=== PATIENT | female | born 1960 | race Caucasian/White ===

== ENCOUNTER → 2016-11-04 | Outpatient (CLI) | payer BC ==
--- NOTE | 2016-11-07 14:38 | MY ---
EXAMINATION: Bilateral digital mammography utilizing CAD. HISTORY: Screening exam. Comparison is made to previous studies dated 11/11/2015, 11/06/2014, 014. FINDINGS: Bilateral scattered fibroglandular densities. No suspicious calcifications, masses or a rchitectural distortions. No pathologic appearing lymph nodes, no abnormal skin thickening or nipp le inversion. CAD highlighted regions appear normal at this time. IMPRESSION: BI-RADS category I - negative mammogram. Continued screening according to ACR-ACS gu idelines suggested. THE FALSE-NEGATIVE RATE OF MAMMOGRAM IS APPROXIMATELY 10%. MANAGEMENT OF A PALPABLE ABNORMALITY MUST BE BASED UPON CLINICAL GROUNDS. SENSITIVITY FOR DETECTION OF ABNORMALITIES IN DENSE BREASTS IS LOW. NOTE: A letter will be sent to the patient regarding findings. [facility] -- BAMBI Baer [phone] - FAX [phone]
== END ==
LOC: MW.MAM 11:20
PROVIDERS: ATTEND Obstetrics & Gynecology
DX: Z12.31 Encounter for screening mammogram for malignant neoplasm of breast (principal)
CPT/HCPCS: G0202; G0202-26

== ENCOUNTER → 2016-11-21 | Outpatient (CLI) | payer BC ==
--- NOTE | 2016-11-22 14:14 | MR ---
EXAM DATE: 11/21/16 PATIENT'S AGE: 56 Patient: VALERY SOUTH Facility: [place], [place] Site . Site : [id number] Study: MRI Spine Lumbar [id number]/3/2017 7:38:44 PM Ordering Physician: Chuck Mullins Final Report: Indication: Low back pain. History degenerative disc disease. Technique: Noncontrast sagittal axial T1 and T2 and sagittal stir sequences are provided. No comparisons. Findings: Degenerative signal changes present adjacent L4-L5 and S1 endplates. Hemangioma within the T12 vertebral body. Mild lumbar scoliosis. Remainder of the lumbar spine demonstrates normal overall stature, alignment and intact and marrow signal. Conus is within normal limits. T12-L1, L1-2: Unremarkable. L2-3: Minimal circumferential disk bulge results in no central canal or foraminal narrowing. L3-4: Mild underlying disc bulge results in no central canal or foraminal narrowing. L4-5: Mild underlying disk bulge that is eccentric to the right with moderate facet arthropathy results in no left foraminal narrowing with moderate central canal narrowing and right foraminal narrowing with compression of the exiting right L4 nerve root. L5-S1: Mild broad-based posterior disc bulge with moderate facet arthropathy that appears slightly eccentric to the left results in moderate lateral recess narrowing with compression of the traversing S1 nerve roots. Moderate bilateral foraminal narrowing slightly worse on the left. Mild to moderate central canal narrowing. Impression: 1. Moderate bilateral recess and foraminal narrowing at L5-S1. 2. Moderate central canal and right foraminal narrowing at L4-5. 3. Lumbar scoliosis. 4. Milder degenerative change within the remainder of the lumbar spine as outlined above. Dictated by Roel Shoemaker MD @ Nov 22 2016 12:27PM (Electronic Signature) Report Signed by Proxy and Original Signed Document filed in the Medical Record. [email or web address]
== END ==
LOC: MW.MRI 17:44
PROVIDERS: ATTEND Emergency Medicine
DX: M51.36 Other intervertebral disc degeneration, lumbar region (principal); M47.817 Spondylosis without myelopathy or radiculopathy, lumbosacral region; M41.9 Scoliosis, unspecified; M99.73 Connective tissue and disc stenosis of intervertebral foramina of lumbar region; M99.74 Connective tissue and disc stenosis of intervertebral foramina of sacral region
CPT/HCPCS: 72148; 72148-26

== ENCOUNTER 2016-12-22 12:04 | Day surgery (SDC) | payer BC ==
[~2016-12-22 12:04] MED LIST: Betamethasone Acetate/Betamethasone Sod Phosphate 30 MG/5 ML MDV ONE; Iopamidol 408 MG/ML 200 ML SDV IV ONE; Lidocaine 2% 5 ML SDV ONE; Ropivacaine 0.5% 5 MG/ML 30 ML SDV ONE
--- NOTE | 2016-12-22 21:35 | OR ---
SURGEON: Sindhu Oviedo D.O. DATE OF PROCEDURE: 12/22/2016 OR STAFF PRESENT: 1. Carmen Greene RN. 2. Ezequiel Haley RN. 3. RT Misa. WOUND CLASSIFICATION: 1. PREOPERATIVE DIAGNOSES: 1. Chronic low back pain. 2. Lumbar degenerative disk disease. 3. Lumbar spondylosis. 4. Lumbar spinal stenosis. POSTOPERATIVE DIAGNOSES: 1. Chronic low back pain. 2. Lumbar degenerative disk disease. 3. Lumbar spondylosis. 4. Lumbar spinal stenosis. PROCEDURE PERFORMED: 1. Caudal epidural steroid injection. 2. Fluoroscopic guidance for needle placement. 3. Local with oral Valium for sedation. SCREENING QUESTIONS: The patient answered "no" to all of the following questions: 1. Are you allergic to latex? 2. Do you have a bleeding disorder? 3. Do you have any current local or systemic infections? 4. Are you taking any anti-inflammatories or blood thinners? 5. Do you have any joint replacements, heart valve replacements, or a pacemaker? DESCRIPTION OF PROCEDURE: The patient had the procedure thoroughly explained including all possible risks, benefits and alternatives. Consent was signed in my clinic indicating understanding and willingness to proceed. The patient presented to [facility] and was escorted to the dressing room to disrobe and change into a hospital gown. Preoperative vital signs were taken and stable. The patient reported that Valium was taken prior to the procedure. The patient was brought back to the procedure room and placed in the prone position on the procedure room table. A pillow was placed under the hips in order to flatten the lumbar lordosis. The back was prepped with ChloraPrep and sterilely draped. All personnel in the operating room were dressed in appropriate attire including surgical scrubs, head and shoe covers. This was to ensure sterility while in the treatment room. During the time fluoroscopy was in use, all personnel in the operating room wore lead west with thyroid collars. Sterile technique was used throughout the procedure. The patient was awake and conversant throughout the procedure. There was no evidence of infection at the site of needle insertion. Skeletal landmarks were identified under fluoroscopy for the caudal epidural. Skin was anesthetized with 2% lidocaine with a sterile 27-gauge 1.5 inch needle. Then a 20-gauge Tuohy epidural needle was placed in the epidural space with loss of resistance technique under fluoroscopic guidance. No heme, cerebrospinal fluid, or paresthesias were noted. Isovue-200 contrast dye was injected in 0.2 cubic centimeter increments and seen to outline the epidural space in both AP and lateral views. There was no intravascular flow pattern observed under live fluoroscopy. Then 12 milligrams of Celestone was slowly injected after negative aspiration. The patient tolerated the procedure well. Vital signs were stable during and after the procedure. The staff escorted the patient to the recovery area and the patient was released in stable condition after a brief stay in the recovery room monitored by the nurse. The patient was given both oral and written discharge and follow up instructions with recommendation to follow up given for 2-3 weeks. The patient voiced understanding including understanding of those signs and symptoms that would require emergency care. The patient knows how to contact the office if there are any additional problems or questions in the meantime. PREOPERATIVE PAIN: 8/10. POSTOPERATIVE PAIN: 1/10. FOLLOWUP: Follow up in the pain clinic in 2 to 3 weeks. WILNER / DANNIELLE /[id number] SANJAY
== END 2016-12-22 13:45 | disposition home or self-care (01) ==
LOC: MW.SDS 12:04
PROVIDERS: ATTEND Anesthesiology
DX: M51.16 Intervertebral disc disorders with radiculopathy, lumbar region (principal); M48.06 Spinal stenosis, lumbar region; M47.896 Other spondylosis, lumbar region; M99.83 Other biomechanical lesions of lumbar region; F40.240 Claustrophobia; E78.00 Pure hypercholesterolemia, unspecified; M17.12 Unilateral primary osteoarthritis, left knee; G25.81 Restless legs syndrome; F17.290 Nicotine dependence, other tobacco product, uncomplicated; Z98.890 Other specified postprocedural states; Z79.82 Long term (current) use of aspirin; Z79.899 Other long term (current) drug therapy; Z90.710 Acquired absence of both cervix and uterus
CPT/HCPCS: 62323; J0702; J2795; Q9966

== ENCOUNTER 2017-06-17 09:34 | Emergency (ER) | payer BC ==
--- NOTE | 2017-06-17 09:57 | EDM.PDOC ---
ED HPI GENERAL MEDICAL PROBLEM - General Chief Complaint: Fever Stated Complaint: BODY ACHES Time Seen by Provider: 06/17/17 09:52 - History of Present Illness INITIAL COMMENTS - FREE TEXT/NARRATIVE: HISTORY AND PHYSICAL: History of present illness: Patient is 56-year-old white female with no significant past medical history is 2 weeks status post spinal fusion who comes in with fever and body aches her temperature was 100.5 and she's had some general body aches she denies cough nausea vomiting abdominal pain she denies back pain states her postop course has been wonderful Review of systems: As per history of present illness and below otherwise all systems reviewed and negative. Past medical history: As per history of present illness and as reviewed below otherwise noncontributory. Surgical history: As per history of present illness and as reviewed below otherwise noncontributory. Social history: No reported history of drug or alcohol abuse. Family history: As per history of present illness and as reviewed below otherwise noncontributory. Physical exam: HEENT: Atraumatic, normocephalic, pupils reactive, negative for conjunctival pallor or scleral icterus, mucous membranes moist, throat clear, neck supple, nontender, trachea midline. Lungs: Clear to auscultation, breath sounds equal bilaterally, chest nontender. Heart: S1S2, regular, negative for clicks, rubs, or JVD. Abdomen: Soft, nondistended, nontender. Negative for masses or hepatosplenomegaly. Negative for costovertebral tenderness. Pelvis: Stable nontender. Genitourinary: Deferred. Rectal: Deferred. Extremities: Atraumatic, negative for cords or calf pain. Neurovascular unremarkable. Neuro: Awake, alert, oriented. Cranial nerves II through XII unremarkable. Cerebellum unremarkable. Motor and sensory unremarkable throughout. Exam nonfocal. Back: Patient's wound is healing nicely was no tenderness no erythema and no discharge patient able stand on her toes back on her heels Diagnostics: CBC CMP UA chest x-ray influenza screen Therapeutics: To be determined Impression: #1 observation 2 weeks status post lumbar surgery #2 fever #3 myalgia Definitive disposition and diagnosis as appropriate pending reevaluation and review of above. - Related Data Allergies Allergy/AdvReac Type Severity Reaction Status Date / Time No Known Allergies Allergy Verified 06/17/17 09:45 Home Meds: Home Meds Ascorbic Acid [Vitamin C] 500 mg PO DAILY 12/24/13 [History] Aspirin [Kami Chewable Aspirin] 81 mg PO DAILY 12/24/13 [History] Multivitamin [Multivitamins] 1 cap PO DAILY 12/24/13 [History] Vitamin B Complex 1 cap PO DAILY 12/24/13 [History] FLUoxetine [PROzac] 1 mg PO DAILY 06/01/15 [History] valACYclovir [Valtrex] 1 tab PO DAILY PRN 06/03/15 [History] Acetaminophen/HYDROcodone [[place] 325-10 MG] 1 - 2 mg PO Q4H PRN 06/17/17 [ History] Nitrofurantoin 100 mg PO DAILY 06/17/17 [History] Past Medical History Other Cardiovascular History: History of racing heart and Ablation of heart done 12 yrs ago Other Respiratory History: 30 yr history of smoking Other Musculoskeletal History: Low back pain, hx: fracturing 2 bones to foot, current Shoulder in 02/2015 Other Oncologic History: Cancer excise 24 yrs ago Other Dermatologic History: hx: skin cancer 24 yrs ago, no return thus far - Past Surgical History Other Cardiovascular Surgeries/Procedures: Heart ablation 12 yrs ago Other Female Surgeries/Procedures: Bladder Repair Other Musculoskeletal Surgeries/Procedures:: Left and Right Knee surgeries Social & Family History - Tobacco Use Smoking Status *Q: Current Every Day Smoker Years of Tobacco use: 30 Packs/Tins Daily: 0.5 - Alcohol Use Days Per Week of Alcohol Use: 2 Number of Drinks Per Day: 6 Total Drinks Per Week: 12 - Recreational Drug Use Recreational Drug Use: No Drug Use in Last 12 Months: No ED ROS GENERAL - Review of Systems Review Of Systems: ROS reveals no pertinent complaints other than HPI. ED EXAM, GENERAL - Physical Exam Exam: See Below (See dictation) Course - Vital Signs Last Recorded V/S: Last Vital Signs Temp 36.7 C 06/17/17 11:30 Pulse 92 06/17/17 11:30 Resp 16 06/17/17 11:30 BP 110/51 L 06/17/17 11:30 Pulse Ox 93 L 06/17/17 11:30 - Orders/Labs/Meds Orders: Active Orders 24 hr Category Date Time Status Chest 2V [CR] Stat Exams 06/17/17 09:59 Taken Labs: Laboratory Tests 06/17/17 06/17/17 06/17/17 Range/Units 10:07 10:07 10:17 WBC 11.10 H (4.0-11.0) K/uL RBC 3.34 L (4.30-5.90) M/uL Hgb 9.3 L (12.0-16.0) g/dL Hct 29.4 L (36.0-46.0) % MCV 88.0 (80.0-98.0) fL MCH 27.8 (27.0-32.0) pg MCHC 31.6 (31.0-37.0) g/dL RDW Std Deviation 43.4 (28.0-62.0) fl RDW Coeff of [place]neha 14 (11.0-15.0) % Plt Count 321 (150-400) K/uL MPV 8.40 (7.40-12.00) fL Neut % (Auto) 88.8 H (48.0-80.0) % Lymph % (Auto) 4.1 L (16.0-40.0) % [place] % (Auto) 3.8 (0.0-15.0) % Eos % (Auto) 3.2 (0.0-7.0) % Baso % (Auto) 0.1 (0.0-1.5) % Neut # (Auto) 9.9 H (1.4-5.7) K/uL Lymph # (Auto) 0.5 L (0.6-2.4) K/uL [place] # (Auto) 0.4 (0.0-0.8) K/uL Eos # (Auto) 0.4 (0.0-0.7) K/uL Baso # (Auto) 0.0 (0.0-0.1) K/uL Nucleated RBC % 0.0 /100WBC Nucleated RBCs # 0 K/uL Sodium 137 (136-146) mmol/L Potassium 3.6 (3.5-5.1) mmol/L Chloride 106 (98-110) mmol/L Carbon Dioxide 20 L (21-31) mmol/L BUN 11 (6.0-23.0) mg/dL Creatinine 0.7 (0.6-1.5) mg/dL Est Cr Clr Drug Dosing 69.33 mL/min Estimated GFR (MDRD) > 60.0 ml/min Glucose 147 H (60-110) mg/dL Calcium 9.2 (8.8-10.8) mg/dL Total Bilirubin 0.5 (0.1-1.5) mg/dL AST 11 (5-40) IU/L ALT 14 (8-54) IU/L Alkaline Phosphatase 80 (40-150) Total Protein 6.8 (6.0-8.0) g/dL Albumin 3.9 (3.5-5.0) g/dL Globulin 2.9 (2.0-3.5) g/dL Albumin/Globulin Ratio 1.3 (1.3-2.8) Urine Color YELLOW Urine Appearance SLT CLOUDY Urine pH 6.5 (5.0-8.0) Ur Specific [place] 1.020 (1.001-1.035) Urine Protein NEGATIVE (NEGATIVE) mg/dL Urine Glucose (UA) NEGATIVE (NEGATIVE) mg/dL Urine Ketones TRACE H (NEGATIVE) mg/dL Urine Occult Blood MODERATE (NEGATIVE) Urine Nitrite NEGATIVE (NEGATIVE) Urine Bilirubin NEGATIVE (NEGATIVE) Urine Urobilinogen 0.2 (<2.0) EU/dL Ur Leukocyte Esterase NEGATIVE (NEGATIVE) Urine RBC 2-4 (0-2/HPF) Urine WBC 1-3 (0-5/HPF) Ur Epithelial Cells MODERATE (NONE-FEW) Urine Bacteria FEW (NEGATIVE) Urine Mucus LIGHT (NONE-MOD) Departure - Departure Time of Disposition: 11:37 Disposition: Home, Self-Care 01 Condition: Good Clinical Impression: Pneumonia - Discharge Information Referrals: PCP,Unknown [Primary Care Provider] - Forms: ED Department Discharge Additional Instructions: The following information is given to patients seen in the emergency department who are being discharged to home. This information is to outline your options for follow-up care. We provide all patients seen in our emergency department with a follow-up referral. The need for follow-up, as well as the timing and circumstances, are variable depending upon the specifics of your emergency department visit. If you don't have a primary care physician on staff, we will provide you with a referral. We always advise you to contact your personal physician following an emergency department visit to inform them of the circumstance of the visit and for follow-up with them and/or the need for any referrals to a consulting specialist. The emergency department will also refer you to a specialist when appropriate. This referral assures that you have the opportunity for followup care with a specialist. All of these measure are taken in an effort to provide you with optimal care, which includes your followup. Under all circumstances we always encourage you to contact your private physician who remains a resource for coordinating your care. When calling for followup care, please make the office aware that this follow-up is from your recent emergency room visit. If for any reason you are refused follow-up, please contact the [facility] emergency department at and asked to speak to the emergency department charge nurse. Levaquin as prescribed push fluids Tylenol as directed follow-up primary medical doctor and spine surgery as discussed return as needed as discussed - My Orders Last 24 Hours: My Active Orders 06/17/17 09:59 Chest 2V [CR] Stat - Assessment/Plan Last 24 Hours: My Active Orders 06/17/17 09:59 Chest 2V [CR] Stat
[2017-06-17 10:33] LABS: CHLORIDE,CL 106 mmol/L (98-110); SODIUM,NA 137 mmol/L (136-146)
[2017-06-17 11:35] VITALS: BP 110/51
--- NOTE | 2017-06-19 13:19 | CR ---
EXAM DATE: 06/17/17 PATIENT'S AGE: 56 Patient: VALERY SOUTH Facility: [place], [place] Site . Site : 1960 Study: XRay Chest -06/17/2017 10:38:01 AM Ordering Physician: Symone Flynn Final Report: HISTORY: Shortness of breath and chest pain. Findings: Two views of the chest are provided. Comparison is made to previous study dated 03/09/2017. There is slight patchy density at the right lung base medially which appears more prominent than on the previous study which could represent early developing pneumonia especially if there are findings clinically for infection. The upper portion of the right lung and left lung are clear. There is no evidence for pleural effusion or pneumothorax. Cardiac silhouette size is within normal limits. Dictated by Braden Alvarado MD @ Jun 17 2017 10:43AM (Electronic Signature) Report Signed by Proxy. SANJAY
== END 2017-06-17 11:46 | disposition home or self-care (01) ==
LOC: MW.ED 09:34
DX: J18.9 Pneumonia, unspecified organism (principal); M79.1 Myalgia; F17.210 Nicotine dependence, cigarettes, uncomplicated; Z79.82 Long term (current) use of aspirin; Z79.899 Other long term (current) drug therapy; Z98.1 Arthrodesis status
CPT/HCPCS: 36415; 71020; 71020-26; 80053; 81001; 85025; 87804; 99281; 99283

== ENCOUNTER 2024-08-19 09:55 | Day surgery (SDC) | payer BC ==
[~2024-08-19 09:55] MED LIST changes: -Betamethasone Acetate/Betamethasone Sod Phosphate 30 MG/5 ML MDV ONE; -Iopamidol 408 MG/ML 200 ML SDV IV ONE; +Lactated Ringers 1,000 ML IV SCH; -Lidocaine 2% 5 ML SDV ONE; -Ropivacaine 0.5% 5 MG/ML 30 ML SDV ONE
[2024-08-19] MEDS ORDERED: propofoL 500 MG/50 ML 50 ML ONE (10:06)
[2024-08-19] MEDS ORDERED: Lidocaine 2% 5 ML SDV ONE (10:07)
[2024-08-19] MEDS: Lactated Ringers 1,000 ML IV SCH (10:32)
[2024-08-19] MEDS ORDERED: Lactated Ringers 1,000 ML IV SCH (11:15)
[2024-08-19 11:54] VITALS: BP 99/64; PULSE 89
== END 2024-08-19 11:55 | disposition home or self-care (01) ==
LOC: MW.SDS 09:55
PROVIDERS: ATTEND Surgery
DX: Z12.11 Encounter for screening for malignant neoplasm of colon (principal); K57.30 Diverticulosis of large intestine without perforation or abscess without bleeding; E78.00 Pure hypercholesterolemia, unspecified; J01.90 Acute sinusitis, unspecified; Z87.891 Personal history of nicotine dependence; Z79.82 Long term (current) use of aspirin; Z79.899 Other long term (current) drug therapy
CPT/HCPCS: 45378; J2704; J7120; J3490